=== PATIENT | female | born 1980 | race Caucasian/White ===

== ENCOUNTER → 2021-06-12 12:40 | Outpatient (CLI) | payer BC, SELFPAY ==
--- NOTE | ~2021-06-12 | US_ITS ---
EXAMINATION: US renal BI EXAM DATE: 06/12/2021 13:17 INDICATION: Proteinuria . TECHNIQUE: Multiple grayscale and Doppler images of the kidneys were obtained (by a technologist who performed the scan) and subsequently reviewed. There is no prior study for comparison. FINDINGS: Right kidney: There is normal contour and echogenicity. It measures 9.7 x 4.3 x 5.4 centimeters. Th ere are no focal renal lesions identified. There is no hydronephrosis. Left kidney: There is normal contour and echogenicity. It measures 11.4 x 5.3 x 5.5 centimeters. Th ere are no focal renal lesions identified. There is no hydronephrosis. Bladder unremarkable. IMPRESSION: 1. Sonographically unremarkable kidneys. Reviewed, dictated and finalized at location A. TER DECORATOR
== END ==
PROVIDERS: PCP Family Medicine; Visit Provider Family Medicine
DX: R80.9 Proteinuria, unspecified (principal)
CPT/HCPCS: 76775